=== PATIENT | male | born 1970 | race Caucasian/White ===

== ENCOUNTER 2025-07-20 10:32 | Outpatient (CLI) | payer MEDICARE, SELFPAY ==
--- OUTSIDE RECORDS SUMMARY | 2025-02-08 04:30 | XMS_ITS ---
Author Organization [facility] Address [address] [place] [address] Care Team Providers Care Pharmacy Aide Name Role Phone Madan SOLORIO, Carlos Eduardo Primary Care Provider Unava Barbara Levy Unavailable [phone] REASON FOR VISIT Fungal Nail Care Encounters Encounter Location Date Provider Diagnosis Abdi Aquino Cory Dick Dpm [facility] [address] [id number] 02/08/2025 Barbara Chavez Plan Of Treatment No Information Progress Notes * Anders MARSHALLOB:1970 (55 yo M)Acc No.[id number]:02/08/2025 Patient: Hitesh MICHEL Provider: Dionte Chavez DPM, DABPM :1970 A ge:55 Y S ex:Male Date:02/08/2025 Address:[address] [place], [place] [id number] Pcp:Carlos Eduardo Hager MD Subjective: * Chief Complaints: * 1 . Fungal Nail Care. * Medical History: Objective: * Vitals: Assessment: Plan: * Treatment: * Billing Information: * Visit Code: * Procedure Codes: * Electronic signature of Alise Chavez DPM DABPM on 07/20/2025 at 11:15 AM CDT Sign off status: Pending * Provider: Dionte Chavez DPM, DABPM Date: 0 02/08/2025 Generated for Matt salgado/Lorin/Jazielitting on: 0 07/20/2025 11:15 AM CDT
--- OUTSIDE RECORDS SUMMARY | 2025-07-20 11:15 | XMS_ITS | Clinical Summary ---
Author Organization [facility] Address [address] [place] [address] Care Team Providers Care General Car Supervisor Yard Name Role Phone Unavailable Primary Care Provider Unavailabl e Allergies No known active allergies Medications Lacosamide 200 MG tablet Take 1 tablet (200 mg total) by mouth 2 (two) times a day. 60 tablet 10/15/2018 Active cloBAZam (ONFI) tablet Take 3 tablets (30 mg total) by mouth nightly. 90 tablet 10/16/2018 Active divalproex (DEPAKOTE) 500 MG EC tablet Take 1 tablet (500 mg total) by mouth every 8 (eight) hours. 90 tablet 10/16/2018 Active rufinamide (BANZEL) 400 MG tablet Take 1 tablet (400 mg total) by mouth once a day. 30 tablet 10/16/2018 Active rufinamide (BANZEL) 400 MG tablet Take 2 tablets (800 mg total) by mouth 2 (two) times a day. 60 tablet 10/16/2018 Active atorvastatin (LIPITOR) 10 MG tablet Take 1 tablet (10 mg total) by mouth daily. 30 tablet 10/16/2018 Active lisinopril (PRINIVIL,ZESTR IL) 5 MG tablet Take 1 tablet (5 mg total) by mouth once a day. 30 tablet 10/17/2018 Active polyethylene glycol (MIRALAX) packet Take 17 g by mouth once a day. 10 each 10/17/2018 Active alendronate (FOSAMAX) 70 MG tablet Take 1 tablet (70 mg total) by mouth Weekly AM. 4 tablet 10/23/2018 Active desmopressin (DDAVP) 0.2 MG tablet Take 1 tablet (0.2 mg total) by mouth nightly. 30 tablet 10/16/2018 Active pantoprazole (PROTONIX) 40 MG EC/DR tablet Take 1 tablet (40 mg total) by mouth once a day. 30 tablet 10/17/2018 Active cloBAZam (ONFI) tablet Take 1.25 tablets (25 mg total) by mouth every morning. 40 tablet 10/17/2018 Active Active Problems Problem Noted Date Diagnosed Date Gastritis 10/07/2018 Immunizations Immunization Administration Dates Next Due Influenza, Unspecified 08/06/2018 Family History Medical History Relation Name Comments Hearing loss Father Heart disease Father Hyperthyroidism Mother Relation Name Status Comments Father Mother Social History Tobacco Use Types Packs/Day Years Used Date Smoking Tobacco: Never Smokeless Tobacco: Never Alcohol Use Standard Drinks/Week Comments No 0 (1 standard drink = 0.6 oz pur e alcohol) Sex and Gender Information Value Date Recorded Sex Assigned at Not on file Legal Sex Male 5:54 PM EDT Gender Identity Not on file Sexual Orientation Not on file Last Filed Vital Signs Vital Sign Reading Time Taken Comments Blood Pressure 113/75 10/17/2018 7:15 AM AMMUNITION SPECIALIST Pulse 74 10/17/2018 7:15 AM AMMUNITION SPECIALIST Temperature 36.3 C (97.4 F) 10/17/2018 7:15 AM AMMUNITION SPECIALIST Respiratory Rate 18 10/17/2018 7:15 AM AMMUNITION SPECIALIST Oxygen Saturation 95% 10/17/2018 7:15 AM AMMUNITION SPECIALIST Inhaled Oxygen Concentration - - Weight 98.4 kg (217 lb) 10/07/2018 10:56 PM AMMUNITION SPECIALIST Height 182.9 cm (6') 10/09/2018 5:21 PM AMMUNITION SPECIALIST Body Mass Index 29.43 10/07/2018 10:56 PM AMMUNITION SPECIALIST Plan of Treatment Health Maintenance Due Date Last Done Comments CT Colonography 1971 Colonoscopy 1971 Colorectal Cancer Screening 1971 FIT-DNA (Cologuard) 1971 FIT 1971 FOBT 1971 Sigmoidoscopy 1971 Annual Visit Topic 1972 MMR Vaccines (1 of 1 - Stand jett series) 1972 Hepatitis C Screening 1989 DTaP/Tdap/Td Vaccines (1 - Tdap) 1990 Hepatitis B Vaccines (1 of 3 - 19+ 3-dose series) 1990 HIB Vaccines Aged Out No longer eligi ble based on patient's age to complete this topic HPV Vaccines Aged Out No longer eligi ble based on patient's age to complete this topic Hepatitis A Vaccines Aged Out No long er eligible based on patient's age to complete this topic IPV Vaccines Aged Out No longer eligi ble based on patient's age to complete this topic Meningococcal Vaccine Aged Out No azul idalmis eligible based on patient's age to complete this topic Pneumococcal Vaccine: Pediat rics (0 to 5 years) and At-Risk Patients (6 to 64 Years) Aged Out No longer eligible b ased on patient's age to complete this topic Advance Directives Documents on File Type Date Recorded Patient Ripper Operator Expl anation Power of Inbound Call Center Representative 10/07/2018 8:12 PM DURAB LE POWER OF CONTROLS DESIGNER * Full Resuscitation (Latest Code Status on File) Date Activated Date Inactivated Comments 10/07/2018 11:56 PM 10/17/2018 2:20 PM
--- OUTSIDE RECORDS SUMMARY | 2025-07-20 11:15 | XMS_ITS | Clinical Summary ---
Author Organization [facility] Address [address] [place] [address] Care Team Providers Care Slasher Tender Name Role Phone Carlos Eduardo Hager MD Primary Care Provider [phone] Allergies No known active allergies Medications divalproex EC 500 MG tablet Take 1 tablet (500 mg total) by mouth daily. 10/16/2018 Active divalproex EC 250 MG tablet Take 1 tablet (250 mg total) by mouth nightly at bedtime. 06/06/2012 Active Lacosamide 150 MG Tab Take 150 mg by mouth 2 (two) times a day. 05/29/2012 Active cloBAZam 20 MG Tab Take 15 mg by mouth daily. q morning 10/17/2018 Active lisinopril 5 MG tablet Take 1 tablet (5 mg total) by mouth daily. 10/17/2018 Active Ergocalciferol (VITAMIN D2) 2000 units Tab Take 1,000 mg by mouth daily. Active cannabidiol (EPIDIOLEX) 100 MG/ML oral solution Take 5 mLs (500 mg total) by mouth 2 (two) times a day. 04/13/2019 Active acetaminophen 325 MG tablet Take 2 tablets (650 mg total) by mouth every 4 (four) hours. 02/17/2019 Active simvastatin 5 MG tablet Take 1 tablet (5 mg total) by mouth. Active cloBAZam (ONFI) 10 MG tablet TAKE 1 1/2 TABLET BY MOUTH ONCE DAILY IN THE MORNING, AND 3 TABLETS IN THE EVENING 04/11/2020 Active rufinamide (BANZEL) 400 MG Tab Banzel 400 mg tablet TAKE TWO TABLETS BY MOUTH IN THE MORNING ONE TABLET AT 4 PM THEN TWO TABLETS AT BEDTIME 07/11/2020 Active traMADol 50 MG tablet tramadol 50 mg tablet TAKE 1 TABLET BY MOUTH EVERY 6 HOURS NEEDED FOR PAIN Active desmopressin (DDAVP) 0.2 MG tabletIndicatio ns:Enuresis take 2 tablets by mouth once daily at bedtime 60 tablet 09/09/2024 Active cenobamate (XCOPRI) tablet Take 1 tablet (50 mg total) by mouth daily. Active desmopressin (DDAVP) 0.2 MG tabletIndicatio ns:Enuresis TAKE 1 TO 2 TABLETS BY MOUTH ONCE DAILY AT NIGHT NEEDED 60 tablet 05/17/2025 Active desmopressin (DDAVP) 0.2 MG tabletIndicatio ns:Enuresis 1-2 tablets by mouth at bedtime 60 tablet 2 07/01/2025 Active Active Problems No known active problems Encounters Date Type Department Care Team Description 07/01/2025 Orders Only [facility] [address] [place] [address] Anabela Valente APNP 06/30/2025 Telephone [facility] [address] [place] [address] Anabela Valente APNP Results (Paper copy bmp) 06/25/2025 Scan [facility] Scanned, [facility] (SCAN) 06/25/2025 Orders Only [facility] [address] [place] [address] Anabela Valente APNP 05/24/2025 Scan [email or web address] [facility] Scanned, Doc [facility] (SCAN) from Last 3 Months Family History Medical History Relation Comments Heart Disease Father Hypertension Father Heart Disease Mother Relation Status Comments Father Mother Social History Tobacco Use Types Packs/Day Years Used Date Smoking Tobacco: Never Passive Smoke Exposure: Never Smokeless Tobacco: Never Tobacco Cessation:Counseling Given: No Alcohol Use Standard Drinks/Week Comments No 0 (1 standard drink = 0.6 oz pur e alcohol) AUDIT-C Answer Date Recorded Frequency of Alcohol Consumption Never 06/10/2019 Average Number of Drinks Not on file 019 Frequency of Binge Drinking Not on file 06/01 PHQ-2 Answer Date Recorded Patient Health Questionnaire-2 Score 0 01/26/2025 Sex and Gender Information Value Date Recorded Sex Assigned at Male 01/26/2025 2:59 PM AUTOCAD ELECTRICAL DESIGNER Legal Sex Male 9:37 PM CDT Gender Identity Male 01/26/2025 2:59 PM AUTOCAD ELECTRICAL DESIGNER Sexual Orientation Not on file Last Filed Vital Signs Vital Sign Reading Time Taken Comments Blood Pressure 105/69 01/26/2025 2:54 PM AUTOCAD ELECTRICAL DESIGNER Pulse 77 01/26/2025 2:54 PM AUTOCAD ELECTRICAL DESIGNER Temperature 36.7 C (98 F) 01/20/2024 3:34 PM AUTOCAD ELECTRICAL DESIGNER Respiratory Rate 17 01/26/2025 2:54 PM AUTOCAD ELECTRICAL DESIGNER Oxygen Saturation 95% 01/26/2025 2:54 PM AUTOCAD ELECTRICAL DESIGNER Inhaled Oxygen Concentration - - Weight 104 kg (229 lb 3.2 oz) 01/26/2025 2:54 PM AUTOCAD ELECTRICAL DESIGNER Height 182.9 cm (6') 01/26/2025 2:54 PM AUTOCAD ELECTRICAL DESIGNER Body Mass Index 31.09 01/26/2025 2:54 PM AUTOCAD ELECTRICAL DESIGNER Plan of Treatment Upcoming Encounters Date Type Department Care Team (Late st Contact Info) Description 01/28/2026 3:40 PM AUTOCAD ELECTRICAL DESIGNER Office Visit [facility] [place] [address] [place] [address] Adriana Haskins MD [address] [place] [address] Health Maintenance Due Date Last Done Comments Colorectal Cancer Screening Colonoscopy (10 Years) 1971 Annual Physical 1974 Hepatitis C 1989 DTaP, Tdap and Td Vaccines ( 1 - Tdap) 1990 Hepatitis B Vaccines (1 of 3 - 19+ 3-dose series) 1990 Pneumococcal Vaccine: 50+ Ye ars (2 of 2 - PPSV23) 2021 09/20/2015 Zoster Vaccines (1 of 2) 2021 COVID-19 Vaccine (1 - 2023-2 5 season) 2024 PHQ-2 (Physician [place]) Completed 01/26/2025 Meningococcal B Vaccine Aged Out No l onger eligible based on patient's age to complete this topic Meningococcal Vaccine Aged Out No azul idalmis eligible based on patient's age to complete this topic RSV Immunizations Under 20 Months Aged Out No longer eligible based on patient's age to complete this topic Medical Devices Implanted Type Area Conventional Mortgage Underwriter Device Identifier Shelf Expiration Date Model / Serial / Lot Vagal Nerve Stimulator Procedures Procedure Name Priority Date/Time Associated Diagnosis Comments OUTSIDE LAB (SCAN ORDER) 06/25/2025 CT GENERIC 05/24/2025 from Last 3 Months Results * OUTSIDE LAB (SCAN ORDER) (06/25/2025) 06/25/2025 us [facility] Scanned SCANNING Final Resu lt * CT GENERIC (05/24/2025) Anatomical Region Laterality Modality Other 05/24/2025 [email or web address] Scanned SCANNING Final Resu lt from Last 3 Months Additional Health Concerns Infection Onset Date Last 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
--- OUTSIDE RECORDS SUMMARY | 2025-07-20 11:15 | XMS_ITS | Clinical Summary ---
Author Organization [facility] Address [address] [place] [address] Care Team Providers Care Flight Simulator Teacher Name Role Phone Carlos Eduardo Hager MD Primary Care Provider [phone] Source Comments [facility],non-owned Affiliates and Associated Physician Practices is amultiple site organization consisting of ambulatory clinics and hospital sitesin [place], [place] and [place]. This disclosure is being madepursuant to the Care Everywhere program and may not contain all information available regarding this patient. Last updated 18.[facility] Allergies No known active allergies Medications * Be aware that medications may not be up to date on this document. Alwaysverify current medications with the patient. Ergocalcifero l (VITAMIN D2) 2000 UNITS Take 1,000 mg by mouth Active alendronate (FOSAMAX) 70 MG tablet Take 1 (one) tablet by mouth every 7 days before meal Take in morning with full glass of water on empty stomach and remain upright for 30 min Active desmopressin (DDAVP) 0.2 MG tablet Take 1 (one) tablet by mouth at bedtime Active lisinopril (PRINIVIL;ZES TRIL) 5 MG tablet Take 1 (one) tablet by mouth once daily Active acetaminophen (TYLENOL) 325 MG tablet Take 2 tablets by mouth every 4 hours as needed Maximum allowable Acetaminophen amount = 4 Grams (4000 mg) / 24 hours. 02/18/20 19 Active HYDROcodone-a cetaminophen (NORCO) 5-325 MG tablet Take 1 tablet by mouth every 6 hours as needed 15 tablet 02/18/20 19 Active Additional Information Patient not taking.Reported on 2024 atorvastatin (LIPITOR) 10 MG tablet Take 1 tablet by mouth at bedtime 30 tablet 02/18/20 19 Active traMADol (ULTRAM) 50 MG tablet Take 50 mg by mouth as needed 05/29/20 19 Active warfarin (COUMADIN) 10 MG tablet TAKE 1 TABLET BY MOUTH ONCE DAILY AT BEDTIME (ALTERNATE WITH 4.5 OF THE 2 MG TABLETS 9MG 10MG 10MG 9MG 10MG 10MG...) 01/06/20 21 Active warfarin (COUMADIN) 2 MG tablet TAKE 4 & 1 2 (FOUR & ONE HALF) TABLETS BY MOUTH ALTERNATING WITH THE 10 MG TABLET EVERY 2 DAYS. (9MG 10MG 10MG 9MG 10MG 10MG...) 01/06/20 21 Active cannabidiol (Epidiolex) 100 MG/ML oral solution GIVE 7 ML BY MOUTH 2 TIMES A DAY 420 mL 11 08/13/20 23 Active Additional Information Patient taking differently: GIVE 5 ML BY MOUTH 2 TIMES A DAY, Reported on 2024 topiramate (Topamax) 50 MG tablet Take 1 (one) tablet by mouth at bedtime 60 tablet 5 10/01/20 23 Active Additional Information Patient not taking.Reported on 2024 Vimpat 150 MG tablet Take 2 tablets by mouth twice daily 120 tablet 5 02/10/20 24 Active Onfi 10 MG tablet TAKE 1 & 1/2 (ONE & ONE-HALF) TABLETS BY MOUTH TWICE DAILY 270 tablet 1 06/09/20 24 Active Depakote 250 MG tablet TAKE 2 TABLETS BY MOUTH IN THE MORNING AND 1 AT BEDTIME 270 tablet 08/17/20 24 Active Banzel 400 MG tablet TAKE 2 TABLETS BY MOUTH IN THE MORNING AND 1 AT 4PM AND 2 AT BEDTIME 450 tablet 3 07/06/20 25 Active Banzel 400 MG tablet TAKE 2 TABLETS BY MOUTH IN THE MORNING AND 1 AT 4PM AND 2 AT BEDTIME 450 tablet 3 07/20/20 24 025 Discontinued Active Problems Problem Noted Date Diagnosed Date Syncope and collapse 02/12/2024 Clonic seizure 03/31/2021 Epilepsy 03/31/2021 Pulmonary embolism 03/31/2021 Pain in elbow 03/30/2021 Gastritis 10/07/2018 Failure to thrive (child) 09/30/2018 Seizure 09/30/2018 Intractable nausea and vomiting 09/30/2018 Hematemesis with nausea 09/30/2018 Encounters Date Type Department Care Team Description 07/05/2025 Refill [facility] [address] [facility] [address] [place] [address] Prakash Tolentino MD Refill Request from Last 3 Months Family History Medical History Relation Name Comments Hypertension Father Migraine Mother Stroke Mother Relation Name Status Comments Father Alive Mother Alive Social History Tobacco Use Types Packs/Day Years Used Date Smoking Tobacco: Never Smokeless Tobacco: Never Alcohol Use Standard Drinks/Week Comments No 0 (1 standard drink = 0.6 oz pur e alcohol) Sex and Gender Information Value Date Recorded Sex Assigned at Not on file Legal Sex Male 6:06 PM FISCAL SERVICES DIRECTOR Gender Identity Not on file Sexual Orientation Not on file Last Filed Vital Signs Vital Sign Reading Time Taken Comments Blood Pressure 106/78 07/11/2021 10:40 AM CDT Pulse 84 07/11/2021 10:40 AM CDT Temperature 36.3 C (97.3 F) 03/30/2021 10:32 AM CDT Respiratory Rate 14 07/11/2021 10:40 AM CDT Oxygen Saturation 97% 2024 2:59 PM FISCAL SERVICES DIRECTOR Inhaled Oxygen Concentration - - Weight 111.6 kg (246 lb) 2024 11:56 AM FISCAL SERVICES DIRECTOR Height 182.9 cm (6') 2024 11:56 AM FISCAL SERVICES DIRECTOR Body Mass Index 33.36 2024 11:56 AM FISCAL SERVICES DIRECTOR Plan of Treatment Health Maintenance Due Date Last Done Comments COLOGUARD (AGES 45-75) - COLON CA SCREENING 1971 COLON MONITORING 1971 COLONOSCOPY - COLON CA SCREENING 1971 CT COLONOGRAPHY - COLON CA SCREENING 1971 Colorectal Cancer Screening 1971 FIT - COLON CA SCREENING 1971 FLEX SIG - COLON CA SCREENING 1971 MEDICARE AWV 12 MONTHS 1971 HIV SCREENING 1986 HEPATITIS C SCREENING 01/09/1989 DTAP/TDAP/TD VACCINES (1 - Tdap) 1990 HEPATITIS B VACCINE (1 of 3 - 19+ 3-dose series) 1990 PNEUMOCOCCAL VACCINE 50+ (1 of 1 - PCV) 2021 ZOSTER VACCINE (1 of 2) 2021 COVID-19 VACCINE (1 - 2023-25 season) 2024 DEPRESSION SCREENING 12/02/2024 INFLUENZA VACCINE (#1) 2025 08/06/2018 SCREENING FOR DIABETES 12/04/2026 , 01/04/2020, 02/14/2019, Additional history exists HIB VACCINE Aged Out No longer eligi ble based on patient's age to complete this topic HPV VACCINE Aged Out No longer eligi ble based on patient's age to complete this topic MENINGOCOCCAL (Group B) VACCINE SHARED DECISION-MAKING Aged Out No longer eligible based on patient's age to complete this topic MENINGOCOCCAL GROUPS A/C/Y/W VACCINE Aged Out No longer eligible based on patient's age to complete this topic Medical Devices Implanted Type Area Acidizer Device Identifier Shelf Expiration Date Model / Serial / Lot Vns Stimulator Other (Type not listed) [employer] 104 VNS THERAPY DEMIPULSE DUO GROUP B / / Procedures Procedure Name Priority Date/Time Associated Diagnosis Comments COMPREHENSIVE METABOLIC PANEL Routine 12/04/2023 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 MEDICARE Advance Directives * Full Code (Latest Code Status on File) Date Activated Date Inactivated Comments 02/12/2019 9:52 PM 02/17/2019 12:39 PM * Full Code Date Activated Date Inactivated Comments 10/08/2018 9:18 AM 10/17/2018 2:59 PM * Full Code Date Activated Date Inactivated Comments 09/30/2018 1:49 PM 10/07/2018 8:05 PM Care Teams Flight Simulator Teacher Relationship Specialty Start Date End Date Carlos Eduardo Hager MD [address] [place] [id number] PCP - General Family Medicine 06/11/18
--- OUTSIDE RECORDS SUMMARY | 2025-07-20 11:15 | XMS_ITS | Patient Health Record ---
Author Organization [facility] Address [address] [place] [address] Care Team Providers Care Breading Machine Tender Name Role Phone Carlos Eduardo Hager MD Primary Care Provider Barbara Wong Unavailable [phone] Allergies No Known Allergies Reason For Referral No Information Medications Medication SIG (Take, Route, Frequency, Duration) Notes Start Date End Date Status Lisinopril 5 MG TAKE 1 TABLET BY SAUMYA TH ONCE DAILY Oral; Duration: 90 Days Active Banzel 400 MG Oral; Duration: 90 Days Active Vimpat 150 MG TAKE 2 TABLETS BY MO UTH TWICE DAILY Oral; Duration: 90 Days Active Depakote 250 MG Oral; Duration: 90 Days Active Atorvastatin Calcium 10 MG TAKE 1 TABLET BY MOUTH AT BEDTIME Oral; Duration: 90 Days Active Cephalexin 500 MG TAKE 1 CAPSULE BY MO UTH THREE TIMES DAILY Oral; Duration: 7 Days Active Epidiolex 100 MG/ML Oral; Duration: 30 Days Active Onfi 10 MG TAKE 1 & 1/2 (ONE & ONE-HALF) TABLETS BY MOUTH IN THE MORNING AND 3 IN THE EVENING Oral; Duration: 90 Days Active Warfarin Sodium 10 MG TAKE 1 TABLET BY M OUT ONCE DAILY DIRECTED BY DR. Patel; Duration: 90 Days Active Vital Signs Weight-kg 117.93 kg 02/08/2025 Height 72 in 02/08/2025 Weight 260 lbs 02/08/2025 BMI 35.26 kg/m2 02/08/2025 Encounters Encounter Location Date [facility] [address] [id number] [facility]/07/2024 Barbara Kathy Pain in right toe(s) M79.674 ; Tinea unguium B35.1 and Pain in left toe(s) M79.[address] [facility] [address] [id number] 11/09/2024 Barbara Kathy Pain in right toe(s) M79.674 ; Tinea unguium B35.1 and Pain in left toe(s) M79.675 Abdi Ray Se Dpm [facility] [address] [id number] 02/08/2025 Barbara Kathy Pain in right toe(s) M79.674 ; Tinea unguium B35.1 and Pain in left toe(s) M79.675 Assessments Encounter Date Diagnosis (ICD Code) Assessment Notes Treatment Notes Treatment Clinical Notes Section Notes 08/07/2024 Pain in right toe(s) (ICD-10 - M79.674) 11/09/2024 Pain in right toe(s) (ICD-10 - M79.674) 02/08/2025 Pain in right toe(s) (ICD-10 - M79.674) 11/09/2024 Tinea unguium (ICD-10 - B35.1) Manual surgical and electric debridement of toenails 1-5 b/l by 30% to achieve reduction in length and thickness. Continue with periodic toenail debridement until asymptomatic. Advised against oral medication at this time, but vicks application topically under occlusion may be helpful. 02/08/2025 Tinea unguium (ICD-10 - B35.1) Manual surgical and electric debridement of toenails 1-5 b/l by 30% to achieve reduction in length and thickness. Continue with periodic toenail debridement until asymptomatic. Advised against oral medication at this time, but vicks application topically under occlusion may be helpful. 08/07/2024 Tinea unguium (ICD-10 - B35.1) Manual surgical and electric debridement of toenails 1-5 b/l by 30% to achieve reduction in length and thickness. Continue with periodic toenail debridement until asymptomatic. Advised against oral medication at this time, but vicks application topically under occlusion may be helpful. 11/09/2024 Pain in left toe(s) (ICD-10 - M79.675) 08/07/2024 Pain in left toe(s) (ICD-10 - M79.675) 02/08/2025 Pain in left toe(s) (ICD-10 - M79.675) Plan Of Treatment No Information Insurance Providers Payer Name Payer Address Payer Phone Subscriber Number Group Number Insured Name Patient Relationship to Insured Coverage Start Date Coverage End Date [place] Medicare [address] [place] [address] [id number] Hitesh Bolaños Self - patient is the insured [place] [employer] [address] [address] [place] [address] [phone] [id number] Hitesh Bolaños Self - patient is the insured Medical (General) History Medical History History ICD Code high blood pressure seizures Surgical History Surgery Date(Month/Year) Neck Righ foot Kyphoplasty
[2025-07-20 12:08] LABS: INR 1.0; Prothrombin Time 13.0 Seconds (11.1-14.7)
== END 2025-07-20 10:33 | disposition home or self-care (01) ==
PROVIDERS: Visit Provider Pain Medicine Pain Medicine
DX: Z79.01 Long term (current) use of anticoagulants (principal)
CPT/HCPCS: 36415; 85610